=== PATIENT | female | born 1985 | race Caucasian/White ===

== ENCOUNTER 2016-10-02 19:25 | Emergency (ER) | payer OTHER ==
[2016-10-02] MEDS ORDERED: LET GEL TOPICAL 1 EA SYR TP ONE (20:09)
[2016-10-02] MEDS ORDERED: SKIN ADHESIVE (DERMABOND) 1 EACH TP ONE (20:09)
--- NOTE | 2016-10-02 20:11 | EDPHY ---
H & P Time Seen by Provider: 10/02/16 20:02 HPI/ROS: CHIEF COMPLAINT: Finger laceration HISTORY OF PRESENT ILLNESS: This is a 31-year-old female presenting to emergency department complaining of laceration to right index finger. Patient states she was opening the bathroom door and caught her finger on the latch, denies any other injuries full range of motion. Last tetanus was 4 years ago. Denies any other complaints REVIEW OF SYSTEMS: Constitutional: No fever, no chills. Eyes: No discharge. No blurred vision ENT: No sore throat. Cardiovascular: No chest pain, no palpitations. Respiratory: No cough, no shortness of breath. Musculoskeletal: No back pain. Right index finger laceration Skin: No rashes. Neurological: No headache. Smoking Status: Never smoked Physical Exam: General Appearance: Alert and no distress. Eyes: Pupils equal and round no injection. Respiratory: Nonlabored respiratory effort Cardiac: regular rate and rhythm Musculoskeletal: Neck full range of motion Extremities: Right index finger medial 1 cm superficial laceration, no tendon involvement. full range of motion Skin: No rashes or lesions. Constitutional: Initial Vital Signs Temperature (C) 36.8 C 10/02/16 19:38 Heart Rate 62 10/02/16 19:38 Respiratory Rate 18 10/02/16 19:38 Blood Pressure 119/99 H 10/02/16 19:38 O2 Sat (%) 98 10/02/16 19:38 O2 Delivery Mode Room Air Allergies/Adverse Reactions: No Known Allergies Allergy (Unverified 10/02/16 19:38) Home Medications: Medication Instructions Recorded Microgestin 10/02/16 Medical Decision Making Procedures: Procedure: Laceration repair. Verbal consent was obtained from the patient. 1cm laceration on the right index finger. The wound was irrigated. There were no deep structures involved. The wound was repaired Dermabond, and Steri-Strips The procedure was performed by myself. A dressing was applied by our EMT. ED Course/Re-evaluation: Discussed ED plan of care: Wound irrigation, wound repair, splint Differential Diagnosis: Other differential diagnosis considered but not limited to laceration with tendon involvement, and fracture, and cellulitis - Data Points Medications Given: Discontinued Medications Tetracaine/Epinephrine/Lidocaine (Let Gel Topical) 1 ea TP EDNOW ONE Stop: 10/02/16 20:10 Last Admin: 10/02/16 20:20 Dose: Not Given Departure - Departure Disposition: Home, Routine, Self-Care Clinical Impression: Laceration Instructions: Laceration (ED), Skin Adhesive Care (ED) Additional Instructions: 1. Keep wound clean and dry. I would recommend no [place] or river water exposure as this can increase chances for wound infection 2. Wound was closed today with Dermabond. Do not pick or pull the glue will self dissolved 3. Use splint on your finger for the next few days to decreased movement because the Dermabond is right at the crease Referrals: Cori Carty PA [Primary Care Provider] - As per Instructions
[2016-10-02 21:14] VITALS: BP 102/83; PULSE 48; RESP 16; TEMP 98.1; O2SAT 99
== END 2016-10-02 21:14 | disposition home or self-care (01) ==
PROC: 0HQFXZZ Repair Right Hand Skin, External Approach (ICD-10-PCS; principal; 2016-10-02)
DX: S61.210A Laceration without foreign body of right index finger without damage to nail, initial encounter (principal); W23.0XXA Caught, crushed, jammed, or pinched between moving objects, initial encounter; Y92.69 Other specified industrial and construction area as the place of occurrence of the external cause; Y99.0 Civilian activity done for income or pay

== ENCOUNTER → 2017-07-30 | Outpatient (CLI) | payer OTHER | LOC: BMCIMAGING 08:17 | PROVIDERS: ATTEND Physician Assistant | DX: M25.551 Pain in right hip (principal) ==

== ENCOUNTER → 2017-08-14 | Outpatient (CLI) | payer OTHER | LOC: BMCIMAGING 09:00 | PROVIDERS: ATTEND Orthopaedic Surgery | PROC: 3E0U3BZ Introduction of Anesthetic Agent into Joints, Percutaneous Approach (ICD-10-PCS; principal; 2017-08-14) | DX: M25.551 Pain in right hip (principal) ==